=== PATIENT | female | born 1980 | race Caucasian/White ===

== ENCOUNTER → 2025-01-11 12:41 | Outpatient (BNVA) | payer MEDICAID, SELFPAY | PROVIDERS: Referring Provider Family Medicine; Visit Provider Psychiatry & Neurology Neurology | DX: G40.909 Epilepsy, unspecified, not intractable, without status epilepticus (principal); Z82.49 Family history of ischemic heart disease and other diseases of the circulatory system | CPT/HCPCS: 36415; 80203 ==

== ENCOUNTER 2025-01-25 14:33 | Outpatient (CLI) | payer MEDICAID, SELFPAY ==
--- NOTE | 2025-01-25 14:30 | CT_ITS ---
WS: [id number] CT HEAD TECHNIQUE: Noncontrast and contrast-enhanced CT of the head. CLINICAL INFORMATION: G40.909 - Epilepsy, unspecified, not intractable, without... COMPARISON: None. DLP: 1024.[address] scans at [facility] use at least one of these dose optimization techniques: automated exposure control; mA and/or kV adjustment per patient size (includes targeted exams where dose is matched to clinical indication); or iterative reconstruction. FINDINGS: No evidence of intracranial hemorrhage or mass effect. Ventricular system and basal cisterns are patent. No hydrocephalus. Normal connolly-white differentiation. No extra-axial fluid collections. Cerebellar tonsillar ectopia. Normal fourth ventricle. No abnormal intracranial enhancement. Paranasal sinuses are well aerated. Mastoid air cells are well aerated. CT/CT head wo/w con [id number] IMPRESSION: 1. No acute intracranial findings. 2. Low-lying cerebellar tonsils. Normal fourth ventricle. No hydrocephalus. 3. No abnormal intracranial enhancement.
[2025-01-25] MEDS: iohexol 350 mg/mL 500 mL Btl (per mL) IV (15:01)
--- NOTE | 2025-01-25 16:00 | CT_ITS ---
WS: [id number] CTA HEAD AND NECK TECHNIQUE: Contrast enhanced CTA of the head and neck with coronal and sagittal reformatted images and maximum intensity projection (MIP) images. NASCET criteria utilized. CLINICAL INFORMATION: G40.909 - Epilepsy, unspecified, not intractable, without... COMPARISON: None. DLP: 417.[address] scans at [facility] use at least one of these dose optimization techniques: automated exposure control; mA and/or kV adjustment per patient size (includes targeted exams where dose is matched to clinical indication); or iterative reconstruction. FINDINGS: RIGHT: No significant RIGHT cervical ICA stenosis. LEFT: No significant LEFT cervical ICA stenosis. INTRACRANIAL CTA: Distal vertebral arteries are patent. Basilar artery is patent. Normal vascularity to the S[employer]IOR [employer]IPPING CL[employer] territory bilaterally. Patent RIGHT posterior communicating artery. Persistent LEFT S[employer] SHIPPING CLERK. Both ICAs are patent at the skull base. Normal vascularity to the MELVINA and MCA territories bilaterally. No evidence of proximal flow-limiting stenosis. Normal aortic arch. CT/CT angio headneck* [id number] IMPRESSION: 1. No significant cervical ICA stenosis. 2. No flow-limiting intracranial stenosis. 3. Persistent LEFT S[employer] SHIPPING CLERK.
== END 2025-01-25 14:34 | disposition home or self-care (01) ==
PROVIDERS: PCP Family Medicine; Visit Provider Psychiatry & Neurology Neurology
DX: G40.909 Epilepsy, unspecified, not intractable, without status epilepticus (principal); Z82.49 Family history of ischemic heart disease and other diseases of the circulatory system; R93.0 Abnormal findings on diagnostic imaging of skull and head, not elsewhere classified
CPT/HCPCS: 70470; 70496; 70498

== ENCOUNTER → 2025-04-14 12:11 | Outpatient (BNVA) | payer MEDICAID, SELFPAY | PROVIDERS: PCP Family Medicine; Visit Provider Psychiatry & Neurology Neurology | DX: G40.919 Epilepsy, unspecified, intractable, without status epilepticus (principal); G40.909 Epilepsy, unspecified, not intractable, without status epilepticus | CPT/HCPCS: 36415; 80053; 80177; 84207; 85025; 99212 ==